=== PATIENT | female | born 1985 | race Caucasian/White ===

== ENCOUNTER → 2018-04-22 09:45 | Outpatient (CLI) | payer OTHER, SELFPAY ==
--- NOTE | 2018-04-22 09:45 | DT_ITS ---
This patient was seen during an EMR downtime April 19, 2018 - April 26, 2018. This patient may have a combination of paper and electronic documentation or all paper documentation. All documentation is viewable within the e-chart portion of [facility] for each patient visit.
[2018-05-04 14:06] LABS: HPV Reflexed? NOT INDICATED
== END ==
PROVIDERS: Visit Provider Obstetrics & Gynecology
DX: Z12.4 Encounter for screening for malignant neoplasm of cervix (principal)
CPT/HCPCS: 88175; G0145

== ENCOUNTER → 2018-04-22 10:05 | Outpatient (CLI) | payer OTHER, SELFPAY ==
--- NOTE | 2018-04-22 10:05 | DT_ITS ---
This patient was seen during an EMR downtime April 19, 2018 - April 26, 2018. This patient may have a combination of paper and electronic documentation or all paper documentation. All documentation is viewable within the e-chart portion of [facility] for each patient visit.
[2018-04-27 06:13] LABS: ALB/GLOB Ratio 0.8 RATIO (0.9-2.4); AST(SGOT) 17 U/L (15-37); Alanine Aminotransfer ALT/SGPT 28 U/L (13-56); Albumin, Serum 3.6 g/dL (3.2-5.0); Alkaline Phosphatase 85 U/L (45-117); Anion Gap 8 (5-15); BUN 10 mg/dL (7-18); BUN/Creat Ratio 16.4 RATIO (10-20); Chloride 102 mmol/L (98-107); Creatinine, Serum 0.61 mg/dL (0.55-1.02); EST Glomerular Filtration Rate 119 mL/min (>60); Est Glom Filt Rate - Afr Amer 144 mL/min (>60); Free T3 2.5 pg/mL (2.18-3.98); Globulin 4.8 g/dL (2.2-4.2); Glucose 81 mg/dL (74-106); Potassium 4.3 mmol/L (3.5-5.1); Protein, Total 8.4 g/dL (6.4-8.2); Sodium Level 139 mmol/L (136-145)
[2018-04-27 06:14] LABS: Ferritin 88 ng/mL (8-252); Iron 77 ug/dL (50-170); T4 Free Direct 1.02 ng/dL (0.76-1.46); Thyroid Stim Hormone (TSH) 1.34 uIU/mL (0.358-3.74)
[2018-04-27 06:23] LABS: Hematocrit 46.3 % (37-47); Hemoglobin 15.1 g/dl (12.0-15.0); Mean Corp Hgb Conc 32.6 g/gl (32-36); Mean Corpuscular Hgb 29.5 pg (27.0-32.0); Mean Corpuscular Volume 90.6 fL (81-99); Mean Platelet Vol. 9.8 fl (6.2-12.0); Platelet Count 412 K/mm3 (150-450); RBC Distribution Width CV 13.2 % (11.6-14.6); RBC Distribution Width SD 43.4 fl (35.1-43.9); Red Blood Count 5.11 M/mm3 (4.2-5.4); Scan Indicated on CBC? Y/N NO; White Blood Count 8.9 K/mm3 (4.4-11.0)
== END ==
PROVIDERS: Visit Provider Obstetrics & Gynecology
DX: N92.5 Other specified irregular menstruation (principal); Z13.228 Encounter for screening for other metabolic disorders
CPT/HCPCS: 80053; 82728; 83540; 84439; 84443; 84481; 85027

== ENCOUNTER 2018-09-16 11:34 | Outpatient (RCR) | payer OTHER, SELFPAY ==
--- NOTE | 2018-11-04 11:19 | MASS.DISCH ---
Massage Therapy Discharge Summary: Initial Evaluation: 09/16/2018 Diagnosis: Hip Pain No. of Visits: Date of last visit: 09/16/2018 This patient is being discharged from our care at the [facility]. Thank you, Ana Antonio LMT
== END 2018-09-16 19:00 | disposition home or self-care (01) ==
LOC: MASS 11:34
PROVIDERS: Family Provider Family Medicine; PCP Family Medicine; Visit Provider Family Medicine
DX: M25.559 Pain in unspecified hip (principal)
CPT/HCPCS: 97124

== ENCOUNTER → 2018-11-17 08:33 | Outpatient (CLI) | payer OTHER, SELFPAY ==
--- NOTE | 2018-11-17 12:38 | NEURO ---
NCS and/or EMG Patient Report Ordering Doctor: Shonna Webb DATE OF SERVICE: 11/17/18 Elena Bennett is a 33-year-old female who presents for electrodiagnostic testing of the upper limbs. She complains of numbness, tingling and pain in both hands for the past year. Electrodiagnostic findings: Right median motor nerve demonstrates normal distal latency, amplitude and conduction velocity. Left median motor nerve demonstrates prolonged distal latency with normal amplitude and conduction velocity. Left median motor amplitude is 50% of the right side. Normal ulnar motor response bilaterally, including conduction velocity across the elbow. Prolonged median sensory distal latencies noted bilaterally. Normal ulnar and radial sensory responses. Needle EMG testing shows no evidence of denervation in the muscles tested. Motor unit action potentials are of normal amplitude and duration. Electrodiagnostic impression: This is an abnormal study in the upper limbs. 1. Electrodiagnostic findings demonstrate bilateral median mononeuropathy. This consistent with a mild right carpal tunnel syndrome and a moderate left carpal tunnel syndrome. If there are any further questions, please do not hesitate to contact me.
== END ==
PROVIDERS: Family Provider Family Medicine; PCP Family Medicine; Referring Provider Family Medicine; Visit Provider Family Medicine
DX: G56.03 Carpal tunnel syndrome, bilateral upper limbs (principal)
CPT/HCPCS: 95886; 95913

== ENCOUNTER → 2019-04-08 09:58 | Outpatient (CLI) | payer OTHER, SELFPAY ==
[2019-04-08 13:50] LABS: HIV - WCH Non-Reactive (Nonreactive)
[2019-04-08 15:43] LABS: Chlamydia Trachomatis by PCR Negative (Negative); Probe Check PASS; Sample Adequacy Control PASS; Specimen Processing Control PASS
[2019-04-09 12:33] LABS: Hep C Antibodies <0.1 s/co ratio (0.0-0.9)
== END ==
PROVIDERS: Family Provider Family Medicine; PCP Family Medicine; Referring Provider Family Medicine; Visit Provider Family Medicine
DX: Z20.2 Contact with and (suspected) exposure to infections with a predominantly sexual mode of transmission (principal)
CPT/HCPCS: 36415; 86703; 86803; 87491

== ENCOUNTER 2019-10-04 10:00 | Outpatient (RCR) | payer OTHER, SELFPAY ==
--- NOTE | 2018-12-13 13:27 | MASS.EVAL ---
Massage Therapy Evaluation: Initial Evaluation Date: /Age: 04 1985, 33 Diagnosis: Myalgia Tendonitis Medications: Duloxetine Goals: Decerase muscle tension Promote relaxation Plan: To be seen 1 time per month or PRN for a total of ten visits
--- NOTE | 2019-11-11 15:06 | MASS.DISCH ---
Massage Therapy Discharge Summary: Discharge Date: 11/11/2019 Elena was seen for a massotherapy evaluation on 12/08/2018 with the diagnosis of shoulder and back pain. She was treated with seven sessions of massage therapy consisting of moderate to deep pressure soft tissue techniques, myofascial release and trigger point compression to her cervical, thoracic, lower back, upper extremities and hips. Elena responded well to the therapy by reporting decreased tension and pain throughout her head, neck, shoulders, lower back and hips. Her goals for therapy were met throughout the treatment sessions. At this time this patient is being discharged from our care at [facility] facility.
== END 2019-10-04 19:00 | disposition home or self-care (01) ==
LOC: MASS 10:00
PROVIDERS: Family Provider Family Medicine; PCP Family Medicine; Visit Provider Family Medicine
DX: M77.9 Enthesopathy, unspecified (principal); M79.10 Myalgia, unspecified site
CPT/HCPCS: 97124

== ENCOUNTER → 2019-10-17 13:48 | Outpatient (CLI) | payer OTHER, SELFPAY | PROVIDERS: Visit Provider Obstetrics & Gynecology | DX: Z12.4 Encounter for screening for malignant neoplasm of cervix (principal); Z11.3 Encounter for screening for infections with a predominantly sexual mode of transmission ==

== ENCOUNTER → 2019-12-16 15:55 | Outpatient (CLI) | payer OTHER, SELFPAY ==
[2019-12-16 17:43] LABS: hCG Titer Quant., Serum < 1 mIU/mL (1-3)
[2019-12-16 17:54] LABS: Progesterone Level 0.44 ng/mL (See Comment)
== END ==
PROVIDERS: Visit Provider Obstetrics & Gynecology
DX: Z30.014 Encounter for initial prescription of intrauterine contraceptive device (principal)
CPT/HCPCS: 36415; 84144; 84702

== ENCOUNTER → 2020-04-23 | Outpatient (CLI) | payer OTHER, SELFPAY ==
[2020-04-25 23:53] LABS: HPV HC, High Risk Positive (Negative)
[2020-04-25 23:54] LABS: HPV Reflexed? NOT INDICATED
== END | disposition home or self-care (01) ==
LOC: LABSPEC 10:18
PROVIDERS: Visit Provider Obstetrics & Gynecology
DX: R87.610 Atypical squamous cells of undetermined significance on cytologic smear of cervix (ASC-US) (principal); R87.810 Cervical high risk human papillomavirus (HPV) DNA test positive
CPT/HCPCS: 88175; G0145

== ENCOUNTER 2020-04-29 14:06 | Emergency (ER) | payer OTHER, SELFPAY ==
[2020-04-29 14:07] VITALS: BP 144/88; PULSE 88; RESP 16; TEMP 36.7; BMI 34.2
--- NOTE | 2020-04-29 14:40 | RAD_ITS ---
STUDY: X-RAY - RIGHT HAND, ATTENTION FIRST FINGER REASON FOR EXAM: Female, 35 years old. Large wooden splinter removed from thumb TECHNIQUE: 3 view(s) of the finger were obtained. COMPARISON: None. FINDINGS: Normal metacarpal head. Normal metacarpophalangeal joint. Normal proximal phalanx. Normal distal phalanx. Normal interphalangeal joint. No subcutaneous emphysema or radiopaque density within the soft tissue. RAD/Finger(s) Min 2 Views IMPRESSION: Normal x-ray examination of the finger. Electronically Signed: Danny Moy DO at 15:35 EDT Tel [phone], Service support ,
[2020-04-29] MEDS: Diphth,Pertuss(Acell),Tet Vac 0.5 ML Vial IM (14:43)
--- NOTE | 2020-04-29 15:05 | ED.DCSUM_ITS ---
History of Present Illness Chief Complaint: Foreign Body Informant: Patient Onset: Today Narrative: Patient has a piece of chicken coop plywood in her right thumb. Unknown last tetanus. Past Medical History - Allergies and Home Meds Allergies/Adverse Reactions: Allergies No Known Allergies Allergy (Verified 04/29/20 14:13) Smoking Status: Never smoker Review of Systems General: Denies: Chills, Fever, Sweats Eyes: Denies: Visual changes - bilaterally, Diplopia ENT: Denies: Rhinorrhea, Sore throat Cardiovascular: Denies: Chest pain, Palpitations Respiratory: Denies: Dyspnea, Cough, Dyspnea on exertion Gastrointestinal: Denies: Abdominal pain, Nausea, Vomiting, Diarrhea, Melena, Hematochezia Genitourinary: Denies: Dysuria, Hematuria, Frequency Musculoskeletal: Reports: Extremity Pain. Denies: Back pain Skin: Denies: Rash, Wounds Neurological: Denies: Headache, Weakness, Numbness Physical Exam Vital Signs/Narrative: Vital Signs Temp Pulse Resp BP 04/29/20 14:07 98.1 F 88 16 144/88 H Inital Vital Signs reviewed: Yes General: Well nourished, Well developed, No Acute Distress Head: Normocephalic, Atraumatic Eyes: Perrl, EOMI ENT: Moist mucous membranes, No rhinorrhea Neck: Supple, Nontender Cardiovascular: Regular rate, Regular rhythm, No murmurs Respiratory: No distress, CTA bilaterally, Chest nontender Abdomen: Soft, Nontender, Nondistended, Normal bowel sounds Back: Nontender, Normal Inspection Extremities: No edema, Tenderness - There is a wooden splinter in the fat pad of the right thumb. Skin: Normal color, No rash Neurological: Alert, Oriented x3, Cranial nerves II-XII grossly intact, Normal Strength, Normal Sensation Psychological: Normal affect, Normal Mood Diagnostic/Tx/Re-eval - Medical Decision Making Patient underwent a digital block. She still had some discomfort when we attempted to remove it so small amount of local lidocaine was instilled at the site of the splinter. A small 11 blade incision was made to help facilitate removal of the splinter. Splinter was removed the wound was probed I do not feel any more foreign bodies. Post extraction films do not show any radiopaque foreign bodies. Patient understands that given that this was plywood a small piece may remain. If she has problems with it I will refer her to surgery. Her tetanus was updated. ED Disposition - Plan for ED Patient: Disposition: Home or Assisted Living Diagnosis: Foreign body (FB) in soft tissue Instructions: ED Foreign Body Soft Tissue Removed Prescriptions: Cephalexin [Keflex] 500 mg PO Q6 #20 cap Transmission Status: Pending to [facility] Referrals: Davon Madison MD [STAFF PHYSICIAN] - As Needed
[2020-04-29] MEDS: Cephalexin 250 MG Capsule 1000 MG PO (15:47)
== END 2020-04-29 15:50 | disposition home or self-care (01) ==
LOC: ED 15:29
PROVIDERS: Emergency Provider Emergency Medicine; PCP Family Medicine
DX: S60.351A Superficial foreign body of right thumb, initial encounter (principal); X58.XXXA Exposure to other specified factors, initial encounter; Y93.89 Activity, other specified; Y92.9 Unspecified place or not applicable
CPT/HCPCS: 10120; 73140; 90715; 99283

== ENCOUNTER → 2020-06-07 | Outpatient (CLI) | payer OTHER, SELFPAY ==
--- NOTE | 2020-06-07 | CER_PTH ---
PATIENT: MITCH RODRIGUEZ LOC: [facility] U#:[id number] AGE/SX: 35/F ROOM: RE06/07/[address]: Dr. Khanh Talley MD : 1985 BED: DIS: 06/07/2020 SPEC #: [id number] RECD: 06/07/20 15:44 STATUS: LOLA MITCHELL #: [id number] JOSE ALFREDO: 06/07/20 00:[address]: Khanh Talley DEPT: SURGICAL PATHOLOGY RECD BY: Kevin Segal ENTERED: 06/08/20 07:34 SP TYPE: CERV OTHR DR: Dr. Shonna Webb MD Tissues: A - Uterine cervix, NOS B - Uterine cervix, NOS Procedures: Surgery Specimen Level IV HEADER OPERATION: Colposcopy PRE-OP DIAGNOSIS: R87.810 TISSUE SUBMITTED: A - Cervical biopsy 6 o'clock, B - ECC MICROSCOPIC DIAGNOSIS A. 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 Acute and chronic inflammation. See comment. B. ECC: Fragments of benign endocervical epithelium, benign endocervical mucosa, blood and mucous, negative for dysplasia. RYAN:cristian 06/10/20 COMMENT A. Immunohistochemistry ([id number]) for surrogate HPV marker (p16) supports the above diagnosis. Case has been reviewed in consultation with Dr. Garcia who concurs with the above diagnosis. IDC:AM MICROSCOPIC DESCRIPTION Slides are reviewed. GROSS DESCRIPTION A - Received in fixative is one container labeled with the patient's name and designated cervical biopsy 6 o'clock. The specimen consists of three irregular fragments of light knutson soft tissue that in aggregate measure 0.8 x 0.2 x 0.1 cm. The specimen is totally submitted in one cassette. B - Received in fixative is one container labeled with the patient's name and designated ECC. The specimen consists of multiple irregular fragments of hemorrhagic mucoid tissue that in aggregate measure 1.5 x 1 x 0.1 cm. The specimen is totally submitted in one cassette. / SJ:cristian 06/08/20 TC:5 CPT: 13318 x2
--- NOTE | 2020-06-07 | IMM_PTH ---
PATIENT: MITCH RODRIGUEZ LOC: [facility] U#:[id number] AGE/SX: 35/F ROOM: RE06/07/[address]: Dr. Khanh Talley MD : 1985 BED: DIS: 06/07/2020 SPEC #: [id number] RECD: 06/11/20 10:18 STATUS: LOLA REQ #: [id number] JOSE ALFREDO: 06/07/20 00:[address]: Khanh Talley DEPT: IMMUNOHISTOCHEMISTRY RECD BY: Terrie Chen ENTERED: 06/11/20 10:19 SP TYPE: IMMUNO OTHR DR: Dr. Shonna Webb MD Tissues: A - Uterine cervix, NOS Procedures: P16 (add) KI-67 (initial) PHYSICIAN & INSTITUTION [place] [id number] SPECIMEN INFORMATION: Tissue Source: A - Cervix at 6 o'clock, biopsy Clinical Info: R87.810 Specimen Number: [id number] CPT code: 83199, 21594 METHODOLOGY: Deparaffinized sections of prefer/formalin-fixed tissue or PAP/DQ stained slides are incubated with monoclonal/polyclonal antibodies/oligonucleotide probes. Localization is made via biotin free immunoperoxidase method. Appropriate controls are performed and reacted as expected. Results on target cell population are indicated in the following table: RESULTS: ANTIBODY / CLONE RESULT Block A P16 (E6H4) positive, focal and patchy Ki-67 (30-9) positive, low These tests were developed and their performance characteristics determined by [facility]. They may not have been cleared or approved by the U.S. Food and Drug Administration. The FDA has determined that such clearance or approval is not necessary. The above immunohistochemical/dualISH markers are ordered and reviewed by the Pathologist. INTERPRETATION: A. Cervix at 6 o'clock, biopsy: Mild squamous dysplasia. RYAN:cristian 06/12/20
== END | disposition home or self-care (01) ==
LOC: LABSPEC 15:56
PROVIDERS: PCP Family Medicine; Referring Provider Obstetrics & Gynecology; Visit Provider Obstetrics & Gynecology
DX: R87.810 Cervical high risk human papillomavirus (HPV) DNA test positive (principal)
CPT/HCPCS: 88305; 88341; 88342

== ENCOUNTER → 2020-08-06 15:11 | Outpatient (CLI) | payer OTHER, SELFPAY ==
[2020-08-06 18:02] LABS: Absolute Lymphocyte Count 4.31 X10^3/uL (0.83-4.51); Absolute Neutrophil Count 3.8 X10^3/uL (2.0-7.7); Basophil# 0.09 X10^3/uL; Eosinophil# 0.21 X10^3/uL; Eosinophils% 2.2 % (0-5); Hematocrit 44.3 % (37-47); Hemoglobin 14.7 g/dL (12.0-15.0); Lymphocyte # 4.31 X10^3/ul (4.0); Lymphocyte % 45.6 % (19-41); Mean Corp Hgb Conc 33.2 g/dL (32-36); Mean Corpuscular Hgb 29.6 pg (27.0-32.0); Mean Corpuscular Volume 89.1 fL (81-99); Mean Platelet Vol. 9.7 fl (6.2-12.0); Monocyte# 0.99 X10^3/uL; Monocyte% 10.5 % (0-10); NRBC Flagged by Analyzer 0 % (0-5); Neutrophil # 3.83 X10^3/uL (2.7-7.7); Neutrophil % 40.4 % (47-70); POSITIVE MORPHOLOGY YES; Platelet Count 372 K/mm3 (150-450); RBC Distribution Width CV 13.1 % (11.6-14.6); RBC Distribution Width SD 42.8 fl (35.1-43.9); RET-HE 32.7 pg (30-35); Red Blood Count 4.97 M/mm3 (4.2-5.4); Reticulocyte Count 1.99 % (0.5-1.5); White Blood Count 9.5 K/mm3 (4.4-11.0)
[2020-08-06 18:05] LABS: Differential Indicated SCAN CRITERIA MET
[2020-08-06 18:24] LABS: Differential Comment SCANNED
[2020-08-06 18:41] LABS: Ferritin 96 ng/mL (8-252); Iron 88 ug/dL (50-170)
== END ==
PROVIDERS: PCP Family Medicine; Referring Provider Family Medicine; Visit Provider Family Medicine
DX: D75.1 Secondary polycythemia (principal)
CPT/HCPCS: 36415; 82728; 83540; 85025; 85045

== ENCOUNTER 2020-10-16 10:00 | Outpatient (RCR) | payer OTHER, SELFPAY ==
--- NOTE | 2019-11-28 10:19 | MASS.EVAL_ITS ---
Massage Therapy Evaluation: Initial Evaluation Date: 11/28/2019 SUBJECTIVE: Elena is a 34 year old female who was referred to the [facility] for a massotherapy evaluation by Dr. Webb with the diagnosis of low back pain. She presents today with the symptoms of pain, stiffness and tension in the neck, mid back and low back. Elena reports having a past medical history of pain and tension in her neck, shoulders and low back related to her posture at work and stress. She reports having minimal improvement with exercise and stretching. OBJECTIVE: Upon observation Elena has some posture issues with her head and shoulders forward from the neutral position in sitting and standing. After examination and palpation, I found Elena to have high muscle tension with tenderness and myofascial restrictions in her sub occipitals, levator scapulae, trapezius, rhomboids, scalenes, and thoracic paraspinals. Her QL?s, lumbar paraspinals, piriformis, glute medius and minimus all were very tight with fascial restrictions, tender points and trigger points. The first treatment consisted of a one hour massage to her upper body with myofascial release, muscle stripping, trigger point compression techniques, and cervical manual traction. ASSESSMENT: I feel that Elena is a good candidate for massotherapy at this time. She had a favorable response to the first treatment with reduction in her muscle aches, pain and tension. She also had improvement in her cervical flexibility and low back flexibility. PLAN: The plan of care was reviewed with the patient. The patient is to be seen on an as needed basis for a total of ten sessions with the recommendation of once every month for a one hour treatment.
--- NOTE | 2020-11-03 09:37 | DS.PCM_ITS ---
Massage Therapy Discharge Summary: Discharge Date: 11/03/2020 Elena was seen for a massotherapy evaluation on 11/28/2019 with the diagnosis of low back pain. She was treated with ten sessions of massage therapy consisting of deep pressure soft tissue techniques, myofascial release and trigger point compression to her cervical, thoracic, lower back, lower extremities and hips. Elena responded well to the therapy by reporting decreased tension and pain throughout her neck, shoulders, lower back and hips. Her goals for therapy were met throughout the treatment sessions. At this time this patient is being discharged from our care at [facility] facility.
== END 2020-10-16 19:00 | disposition home or self-care (01) ==
LOC: MASS 10:00
PROVIDERS: Family Provider Family Medicine; PCP Family Medicine; Referring Provider Family Medicine; Visit Provider Family Medicine
DX: M54.5 Low back pain (principal)
CPT/HCPCS: 97124

== ENCOUNTER → 2021-03-28 13:32 | Outpatient (CLI) | payer OTHER, SELFPAY ==
[2021-03-12 11:17] VITALS: BMI 35.3
[2021-03-28 16:09] LABS: Syphilis Antibodies Reactive
== END ==
PROVIDERS: PCP Family Medicine; Referring Provider Family Medicine; Visit Provider Family Medicine
DX: Z20.2 Contact with and (suspected) exposure to infections with a predominantly sexual mode of transmission (principal)
CPT/HCPCS: 36415; 86780

== ENCOUNTER → 2021-05-27 09:40 | Outpatient (CLI) | payer OTHER, SELFPAY ==
[2021-04-25 12:56] VITALS: BMI 35.0
[2021-05-27 16:32] LABS: Hepatitis C Antibody Non-Reactive (Nonreactive)
== END ==
PROVIDERS: PCP Family Medicine; Referring Provider Family Medicine; Visit Provider Family Medicine
DX: R94.5 Abnormal results of liver function studies (principal)
CPT/HCPCS: 36415; 86803

== ENCOUNTER → 2021-07-03 | Outpatient (CLI) | payer OTHER, SELFPAY ==
[2021-07-08 16:43] LABS: HPV APTIMA, High Risk Negative (Negative)
[2021-07-08 16:44] LABS: HPV Reflexed? YES, CHARGE PATIENT
== END | disposition home or self-care (01) ==
LOC: LABSPEC 10:01
PROVIDERS: PCP Family Medicine; Visit Provider Obstetrics & Gynecology
DX: Z12.4 Encounter for screening for malignant neoplasm of cervix (principal)
CPT/HCPCS: 87624; 88175; G0145

== ENCOUNTER → 2021-09-17 08:26 | Outpatient (CLI) | payer OTHER, SELFPAY ==
--- NOTE | 2021-09-18 14:25 | PFT ---
INTRODUCTION: The patient is a 36-year-old female that presents for pulmonary function studies secondary to a diagnosis of shortness of breath. Respiratory therapy reports good patient effort. Bronchodilators were used during testing. INTERPRETATION: Forced expiration spirometry demonstrates no evidence of a large airways obstructive ventilatory defect. There was a partial, albeit, technically nonsignificant response to aerosolized bronchodilators. Spirograms are of good quality and plateau normally. Body plethysmography was performed and reveals lung volumes to be within normal limits. Diffusing capacity by single breath CO is also within normal limits. IMPRESSION: Grossly normal pulmonary function studies. There was a partial nonsignificant response to aerosolized bronchodilators.
== END ==
PROVIDERS: PCP Family Medicine; Referring Provider Family Medicine; Visit Provider Family Medicine
DX: R06.02 Shortness of breath (principal)
CPT/HCPCS: 94060; 94726; 94729

== ENCOUNTER 2021-10-21 12:15 | Outpatient (RCR) | payer OTHER, SELFPAY ==
[2020-08-23 10:58] VITALS: BMI 33.8
--- NOTE | 2020-12-10 15:09 | MASS.EVAL_ITS ---
Massage Therapy Evaluation: Initial Evaluation Date: 12/10/2020 SUBJECTIVE: Elena is a 35 year old female who was referred to the [facility] facility for a massotherapy evaluation by Dr. Webb with the diagnosis of myalgias. She presents today with the symptoms of pain, stiffness and tension in the neck, mid back, low back, hips, and legs. Elena reports having a past medical history of tension and pain in her neck, back, shoulders, and headaches. She reports having minimal improvement with exercise and stretching over the last f ew months. OBJECTIVE: Upon observation Elena has some posture issues with her head and shoulders forward from the neutral position in sitting and standing. After examination and palpation, I found Elena to have high muscle tension with tenderness and myofascial restrictions in her sub occipitals, levator scapulae, trapezius, rhomboids, scalenes, and thoracic paraspinals. Her QL?s, lumbar paraspinals, piriformis, glute medius and minimus all were very tight with fascial restrictions, tender points and trigger points. The first treatment consisted of a one hour massage to her full body with myofascial release, muscle stripping, trigger point compression techniques, and cervical manual traction. ASSESSMENT: I feel that Elena is a good candidate for massotherapy at this time. She had a favorable response to the first treatment with reduction in her muscle aches, pain and tension. She also had improvement in her cervical flexibility and low back flexibility. PLAN: The plan of care was reviewed with the patient. The patient is to be seen on an as needed basis for a total of ten sessions with the recommendation of once every month for a one hour treatment.
== END 2021-10-21 19:00 | disposition home or self-care (01) ==
LOC: MASS 12:15
PROVIDERS: PCP Family Medicine; Referring Provider Family Medicine; Visit Provider Family Medicine
DX: M79.10 Myalgia, unspecified site (principal)
CPT/HCPCS: 97124

== ENCOUNTER 2022-01-02 09:15 | Outpatient (CLI) | payer OTHER, SELFPAY ==
[2022-01-02 11:15] LABS: HIV - WCH Non-Reactive (Nonreactive); Hepatitis B Surface Antibody Reactive; Hepatitis B Surface Antigen Non-Reactive (Nonreactive); Syphilis Antibodies Reactive
[2022-01-02 11:52] LABS: Chlamydia Trachomatis by PCR Negative (Negative); Neisserai gonorrhoeae by PCR Negative (Negative); Probe Check PASS; Sample Adequacy Control PASS; Specimen Processing Control PASS
[2022-01-03 08:13] LABS: Hepatitis B Core AB IgM Negative (Negative)
== END 2022-01-02 23:59 | disposition home or self-care (01) ==
PROVIDERS: PCP Family Medicine; Referring Provider Family Medicine; Visit Provider Family Medicine
DX: Z20.2 Contact with and (suspected) exposure to infections with a predominantly sexual mode of transmission (principal)
CPT/HCPCS: 36415; 86703; 86705; 86706; 86780; 87340; 87491; 87591

== ENCOUNTER → 2022-09-01 | Outpatient (CLI) | payer OTHER, SELFPAY ==
[2022-09-08 16:53] LABS: HPV APTIMA, High Risk Positive (Negative)
== END | disposition home or self-care (01) ==
LOC: LABSPEC 10:35
PROVIDERS: PCP Family Medicine; Visit Provider Student in an Organized Health Care Education/Training Program
DX: Z12.4 Encounter for screening for malignant neoplasm of cervix (principal)
CPT/HCPCS: 87624; 88175; G0145

== ENCOUNTER → 2022-10-06 | Outpatient (CLI) | payer OTHER, SELFPAY ==
--- NOTE | 2022-10-06 | IMM_PTH ---
PATIENT: MITCH RODRIGUEZ [facility] U#:[id number] AGE/SX: 37/F ROOM: RE10/06/[address]: Dr. Radha Jaimes DO : 1985 BED: DIS: 10/06/2022 SPEC #: [id number] RECD: 10/08/22 12:20 STATUS: LOLA REQ #: [id number] JOSE ALFREDO: 10/06/22 00:[address]: Radha Jaimes DEPT: IMMUNOHISTOCHEMISTRY RECD BY: Terrie Chen ENTERED: 10/08/22 12:22 SP TYPE: IMMUNO OTHR DR: Dr. Nic Cardona MD Tissues: B - Uterine cervix, NOS Procedures: p16 (initial) KI-67 (add) PHYSICIAN & INSTITUTION [place] [address] SPECIMEN INFORMATION: Tissue Source: B ? Cervix at 11 and 5 o?clock Clinical Info: LSIL & HPV Specimen Number: [id number] CPT code: 41744, 05689 METHODOLOGY: Deparaffinized sections of prefer/formalin-fixed tissue or PAP/DQ stained slides are incubated with monoclonal/polyclonal antibodies/oligonucleotide probes. Localization is made via biotin free immunoperoxidase method. Appropriate controls are performed and reacted as expected. Results on target cell population are indicated in the following table: RESULTS: ANTIBODY / CLONE RESULT Block B P16 (E6H4) positive, focal and patchy Ki-67 (30-9) positive, low These tests were developed and their performance characteristics determined by [facility]. They may not have been cleared or approved by the U.S. Food and Drug Administration. The FDA has determined that such clearance or approval is not necessary. The above immunohistochemical/dualISH markers are ordered and reviewed by the Pathologist. INTERPRETATION: Cervix, 11 and 5 o?clock, biopsy: Focal changes consistent with HPV cytopathic effects. SJ:cristian 10/13/2022
--- NOTE | 2022-10-06 14:15 | CER_PTH ---
PATIENT: MITCH RODRIGUEZ LOC: [facility]#:[id number] AGE/SX: 37/F ROOM: RE10/06/[address]: Dr. Radha Jaimes DO : 1985 BED: DIS: 10/06/2022 SPEC #: [id number] RECD: 10/06/22 15:49 STATUS: LOLA REQ #: [id number] JOSE ALFREDO: 10/06/22 14:[address]: Radha Jaimes DEPT: SURGICAL PATHOLOGY RECD BY: Tia Khan ENTERED: 10/07/22 09:32 SP TYPE: CERV OTHR DR: Dr. Nic Cardona MD Tissues: A - Endocervical B - Uterine cervix, NOS Procedures: Surgery Specimen Level IV HEADER OPERATION: Colposcopy PRE-OP DIAGNOSIS: LSIL & HPV TISSUE SUBMITTED: A ? Endocervical curettings, B ? Cervix 11 and 5 o?clock MICROSCOPIC DIAGNOSIS A. Endocervical curettings: Scant fragment of benign ecto- and endocervical epithelium, negative for dysplasia. B. Cervix, 11 and 5 o?clock, biopsy: Focal changes consistent with HPV cytopathic effects. Acute and chronic inflammation. See comment. SJ:cristian 10/08/2022 COMMENT B. Immunohistochemistry ([id number]) for surrogate HPV marker (p16) supports the above diagnosis. Please make reference to previous specimen ([id number]) cervix, 6 o?clock, biopsy with diagnosis of ?mild squamous dysplasia with HPV changes.? MICROSCOPIC DESCRIPTION Slides are reviewed. GROSS DESCRIPTION A - Received in fixative is one container labeled with the patient's name and designated ECC. The specimen consists of a scant amount of soft tissue. The specimen is totally submitted for cell block preparation. B - Received in fixative is one container labeled with the patient's name and designated cervix 11 and 5 o'clock. The specimen consists of two irregular fragments of light knutson soft tissue that in aggregate measure 0.7 x 0.5 x 0.1 cm. The specimen is totally submitted in one cassette. / RYAN:cristian 10/07/2022 TC: CPT: 98331 x2
[2022-10-10 07:07] LABS: Chlamydia By Nucleic Acid AMP Negative (Negative)
[2022-10-10 08:54] LABS: Gonococcus By Nucleic Acid AMP Negative (Negative)
== END | disposition home or self-care (01) ==
LOC: LABSPEC 15:13
PROVIDERS: PCP Family Medicine; Visit Provider Student in an Organized Health Care Education/Training Program
DX: Z11.3 Encounter for screening for infections with a predominantly sexual mode of transmission (principal)
CPT/HCPCS: 87491; 87591; 88305; 88341; 88342

== ENCOUNTER 2023-04-16 17:00 | Outpatient (RCR) | payer OTHER, SELFPAY ==
--- NOTE | 2023-03-30 12:28 | HP.PTEVAL ---
Patient's Visit Information MITCH RODRIGUEZ is a 38 year old F referred to Physical Therapy by Dr. Tutu Cardona MD with a diagnosis of metatarsalgia. Date of Evaluation: 03/30/23 Physical Therapist: Klever Childs, STERLINGT, OCS, CSCS - Visit Plan Duration: one more visit to vend or Plan: Pt shown gastroc stretch and molded for orthoitcs today. will call when they come in to educate and cut to fit shoe. - Subjective I have foot pain for a couple months insidious onset, maybe with new hiking shoes. She wore then enough that they hurt all the time. Slightly improved now. 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 Better with sitting but not gone. Hurts on off days, enjoys hiking and kayaking. Has not been able to hike, but can still work outside. Diagnosed with metatarsalgia. Numby R last two digits. Walking is main ex. sleep is OK. - Pain ball of both feet Pain Intensity (Out of 10): 0 Pain Intensity Range: 0, 7 - Objective Walks without antalgia today I, trasnfers I. Posture of foot is pes cavus B, hindfoot neutral. Tender to palpation in met heads slightly B. gastroc max tight B at -2 length into DF. Stretch shown today. Otherwise aROM ankles and knees WFL and strength at ankles 4+/5. shoe size 10 , pes cavus , met pad, semi flexible orthotic ordered with mold. - Goals Goal 1:: I in use and fit of orthotics Goal Time Frame: 2-4 Weeks - Rehabilitation Potential Physical Therapy Diagnosis: metatarsalgia, pes cavus contributing. Rehabilitation Potential: Fair - Anticipated Interventions Patient/Client Instruction: Educate patient on: Condition For the Purpose of:: To decrease pain, To improve ability of physical actions for home/community/work/leisure Orthotics: Shoe insert For the Purpose of:: To decrease pain Thank you for the opportunity to evaluate your patient. For Medicare and Medicare HMO plans, please review the plan of care and approve it. It will need to be FAXED BACK to us at [phone] for Medicare purposes. For Medicare only, by signing this I certify the plan of care. Please let me know if there are questions or concerns regarding this plan of care. Physician Signature: Date:
--- NOTE | 2023-04-16 17:12 | HP.PTDCSUM ---
It has been my pleasure to treat MITCH RODRIGUEZ referred by Dr. Tutu Cardona MD, with the diagnosis of metatarsalgia for a total of 2 visit(s). Discharge Date: 04/16/23 Please see the following information for a summary of their discharge status. Subjective: Has bought otc arch supports and they help already. feeling better, excited to get these new ones. ball of both feet Pain Intensity (Out of 10): 0 % Improvement: 100 Objective/Function: Good fit in shoe and feels solid to patient. Goal 1:: I in use and fit of orthotics Goal Progress: Goal Met Plan: d/c, pt to call if concerns with orthotic or needs modified. Discharge Comments: Pt to utilize orthotics and let doctor know if pain persists. If there are questions or concerns regarding this patient's physical therapy, please feel free to call me at [phone]. Thank you for the referral of this patient. Sincerely, Klever Childs, DPT, OCS, CSCS
== END 2023-04-16 19:00 | disposition home or self-care (01) ==
LOC: PT 17:00
PROVIDERS: PCP Family Medicine; Referring Provider Family Medicine; Visit Provider Family Medicine
DX: M77.40 Metatarsalgia, unspecified foot (principal)
CPT/HCPCS: 97161; 97760; 97763

== ENCOUNTER → 2023-07-02 | Outpatient (CLI) | payer OTHER, SELFPAY ==
[2023-07-06 00:06] LABS: Cashew <0.10 kU/L (Class 0); Cat Hair / Dander,Stand <0.10 kU/L (Class 0); Clam <0.10 kU/L (Class 0); Codfish <0.10 kU/L (Class 0); Corn <0.10 kU/L (Class 0); Egg, White <0.10 kU/L (Class 0); Milk (Cow) <0.10 kU/L (Class 0); Oat <0.10 kU/L (Class 0); Peanut <0.10 kU/L (Class 0); SCALLOP <0.10 kU/L (Class 0); SESAME SEED <0.10 kU/L (Class 0); Shrimp <0.10 kU/L (Class 0); Soybean <0.10 kU/L (Class 0); Walnut, (Food) <0.10 kU/L (Class 0); Wheat <0.10 kU/L (Class 0)
== END | disposition home or self-care (01) ==
PROVIDERS: PCP Family Medicine; Referring Provider Otolaryngology; Visit Provider Otolaryngology
DX: T78.40XA Allergy, unspecified, initial encounter (principal)
CPT/HCPCS: 36415; 86003

== ENCOUNTER → 2023-08-27 | Outpatient (CLI) | payer OTHER, SELFPAY ==
--- NOTE | 2023-08-27 07:02 | BI_ITS ---
MAMMOGRAPHY - BILATERAL SCREENING REASON FOR EXAM: Female, 38 years old. Routine annual screening examination. PERTINENT HISTORY: Grandmother with breast cancer. Aunt with breast cancer. TECHNIQUE: Digital bilateral breast myrna (3D mammographic acquisition) in the CC and MLO projections. 2-D mediolateral oblique (MLO) and craniocaudad (CC) views of both breasts were obtained. CAD: Full Field Digital Mammography with Computer Added Detection was performed. COMPARISON: Comparison is made with prior outside examination dated May 03, 2014. FINDINGS: Breast Composition: There are scattered areas of fibroglandular density. There are no dominant masses or suspicious calcifications. Stable small benign-appearing bilateral axillary lymph nodes. No other significant abnormalities are identified. There has been no significant change since the prior study. BI/SCRN MAMM (CAD)W/MYRNA BILAT IMPRESSION: Stable bilateral screening mammogram. Yearly follow-up mammogram recommended. (A) ASSESSMENT CATEGORY: BIRADS Category 2: Benign. A letter regarding these results will be sent to the patient by the facility within 30 days. Approximately 10% of breast cancers are not detected by mammography. A normal mammogram should not delay biopsy of a clinically suspicious abnormality. [id number] Electronically Signed: Maurizio Bryant MD at 11:19 EDT ,
== END | disposition home or self-care (01) ==
LOC: OPBI 07:02
PROVIDERS: PCP Family Medicine; Referring Provider Family Medicine; Visit Provider Family Medicine
DX: Z12.31 Encounter for screening mammogram for malignant neoplasm of breast (principal)
CPT/HCPCS: 77063; 77067

== ENCOUNTER → 2024-03-03 | Outpatient (CLI) | payer OTHER, SELFPAY ==
[2024-03-05 08:13] LABS: Chlamydia By Nucleic Acid AMP Negative (Negative); Gonococcus By Nucleic Acid AMP Negative (Negative)
[2024-03-07 16:09] LABS: HPV APTIMA, High Risk Negative (Negative)
== END | disposition home or self-care (01) ==
PROVIDERS: PCP Family Medicine; Visit Provider Advanced Practice Midwife
DX: Z12.4 Encounter for screening for malignant neoplasm of cervix (principal); Z11.3 Encounter for screening for infections with a predominantly sexual mode of transmission
CPT/HCPCS: 87491; 87591; 87624; 88175; G0145

== ENCOUNTER 2024-11-17 15:00 | Outpatient (RCR) | payer OTHER, SELFPAY ==
--- NOTE | 2024-08-25 13:26 | HP.PTEVAL_ITS ---
Patient's Visit Information Visit Information Visit Information: MITCH RODRIGUEZ is a 39 year old F referred to Physical Therapy by Dr. Nic Cardona MD with a diagnosis of B plantar fascitis. Date of Evaluation: 08/25/24 Physical Therapist: Brandon Zavala DPT Visit Plan Frequency: 1x/Week Duration: 2 Weeks Plan: Pt. was fit for custom orthotics for BLEs.. pt. to come back once orthotic s are here for final fitting. Subjective Subjective: Pt. is here today for her initial evaluation with diagnosis of B plantar fascitis with need for orthotics. Pt. reports having issues for a few years, but orthotics really help her symptoms. Her previous ones have warn out. Pt. reports increased issues with standing and walking. Pt. works as a nurse. Pt. reports being HEP compliant with stretching and strengthening from previous PT. Pt. denies N/T in either LE. Pt. reports when she is off her feet she does well. Pt. is hopeful to be fit for orthotics in order to decreased her B foot pain allowing for increased tolerance to all recreational and work activities. Pain B plantar fascia: Pain Intensity (Out of 10): 1 Pain Intensity Range: 0 and 4 Objective Objective: POSTURE: Pt. good knee and positioning in stance. Increased pronation during SLS bilaterally, no major navicular drop, but does pronate. PALPATION: Pt. has increased tenderness along medial longitudinal arch and plant ar fascia. NEURO: Normal throughout. Pt. is able to rise on heels and toes. ROM: Pt. has good ROM throughout B ankles and feet. MMT: 5/5 strength throughout BLEs without issues. GAIT: With shoes on: good hip and knee positioning, good forefoot rocker moment. Pt. reports mild soreness in B feet with walking. Without Shoes: Pt. has increased B foot pronation during stance phase of gait. Pt. reports increased pain barefoot compared to with shoes on. STAIRS: Normal without issues. Uses 1 HR for stability. Goals Goal 1:: STG: Pt. to be fit for custom orthotics. Goal Time Frame: 1 Week Goal 2:: LTG: pt. to tolerated progressive wearing program of orthotics. Goal Time Frame: 4-6 Weeks Rehabilitation Potential Physical Therapy Diagnosis: pt. has signs and symptoms consistent with B plantar fasciitis. Pt. would benefit from PT to be fitted for orthotics to increase tolerance with all work and recreational activities. She does have increased pronation during stance phase of gait. Rehabilitation Potential: Excellent Anticipated Interventions Patient/Client Instruction: Educate patient on: Condition, Plan of Care, Risk Factors and Benefits of Fitness Program For the Purpose of:: To foster healthy habits, To improve decision making, To facilitate caregiver knowledge, To improve self management, To prevent re-injury and To improve ability to perform tasks related to life management Orthotics: Shoe insert For the Purpose of:: To decrease pain, To increase ROM, To improve nutrient delivery to tissue, To increase oxygenation perfusion, To improve muscle performance and motor function, To improve ability to perform ADL's, To improve gait and locomotor functions and To decrease soft tissue restriction Text: Thank you for the opportunity to evaluate your patient. For Medicare and Medicare HMO plans, please review the plan of care and approve it. It will need to be FAXED BACK to us at [phone] for Medicare purposes. For Medicare only, by signing this I certify the plan of care. Please let me know if there are questions or concerns regarding this plan of care. Physician Signature: Date:
== END 2024-11-17 19:00 | disposition home or self-care (01) ==
LOC: PT 15:00
PROVIDERS: PCP Family Medicine; Visit Provider Family Medicine
DX: M72.2 Plantar fascial fibromatosis (principal)
CPT/HCPCS: 97161; 97760

== ENCOUNTER → 2024-11-25 | Outpatient (CLI) | payer OTHER, SELFPAY | END | disposition home or self-care (01) | LOC: SL 19:54 | PROVIDERS: PCP Family Medicine; Referring Provider Family Medicine; Visit Provider Family Medicine | DX: G47.8 Other sleep disorders (principal) | CPT/HCPCS: 95810 ==

== ENCOUNTER → 2025-02-13 | Outpatient (CLI) | payer OTHER, SELFPAY ==
--- NOTE | 2025-02-13 07:49 | BI_ITS ---
EXAM: SCRN MAMM (CAD)W/MYRNA BILAT DATE: 02/13/2025 CLINICAL HISTORY: F, Age 39 y/o , SCREENING FOR BREAST CANCER BREAST CANCER RISK ASSESSMENT: Has not been calculated. TECHNIQUE: Bilateral screening digital breast tomosynthesis with 2D and 3D images. Computer aided detection. COMPARISON: Prior exam(s) dated 08/27/2023. FINDINGS: TISSUE DENSITY: The breast tissue is composed of scattered area of fibroglandular density. Bilateral Breast Mammographic Findings: There is a 6 mm density in the superior far posterior aspect of the right breast. Further workup is indicated. Benign round calcifications are seen in the left breast. No suspicious masses, suspicious cluster of microcalcifications, architectural distortion or secondary sign of malignancy is identified in the left breast. BI/SCRN MAMM (CAD)W/MYRNA BILAT IMPRESSION: Right Breast: BIRADS 0 Incomplete: Need additional imaging evaluation and/or pr ior mammograms for comparison.. Left Breast: BIRADS 2 BENIGN FINDING. OVERALL FINAL ASSESSMENT: BIRADS 0 Incomplete: Need additional imaging evaluati on and/or prior mammograms for comparison. RECOMMENDATION: Incomplete: Need additional imaging evaluation and/or prior mammograms for comp arison. There is a 6 mm density in the superior, far posterior aspect of the right breast. Further workup is indicated. Patient should return for an LM view of the right breast as well as spot compression MLO view of the right breast density. An ultrasoun d may also be needed. A letter with findings and recommendations will be mailed to the patient. Reading Location: [id number]
== END | disposition home or self-care (01) ==
LOC: OPBI 07:48
PROVIDERS: PCP Family Medicine; Referring Provider Family Medicine; Visit Provider Family Medicine
DX: Z12.31 Encounter for screening mammogram for malignant neoplasm of breast (principal)
CPT/HCPCS: 77063; 77067

== ENCOUNTER → 2025-02-20 | Outpatient (CLI) | payer OTHER, SELFPAY ==
--- NOTE | 2025-02-20 14:24 | US_ITS ---
PROCEDURE: BREAST LIMITED UNILATERAL 02/20/2025 REASON FOR EXAM: 6MM DENSITY SUPERIOR FAR POSTERIOR ASPECT OF RIGHT BREAST Inconclusive mammogram. Evaluate masslike density. TECHNIQUE: Targeted left breast ultrasound. COMPARISON: Mammogram studies available dated 02/20/2025, 02/13/2025 and 08/27/2023 FINDINGS: Left breast ultrasound was targeted to the upper-outer quadrant of the right breast.. The breast tissue appears sonographically normal. No cyst, solid mass, or suspicious shadowing. There is no ultrasound abnormality seen on the images submitted for review to correlate to the masslike density seen on the mammogram. The masslike density therefore presumably is solid. There are no suspicious masses seen to suggest malignancy however, a short-term six-month follow-up mammogram is recommended to document stability. US/Breast Limited Unilateral IMPRESSION: Impression: The masslike density seen on the mammogram was not seen on the ultr asound images submitted for review. Short-term six-month follow-up mammogram is recommended to document stability. Birads: BI-RADS 3: PROBABLY BENIGN. Reading Location: [id number]
--- NOTE | 2025-02-20 14:24 | BI_ITS ---
PROCEDURE: DIAG MAMM W/CAD, UNILAT REASON FOR EXAM: F, Age 39 y/o , 6MM DENSITY SUPERIOR FAR POSTERIOR ASPECT OF RIGHT BREAST Inconclusive mammogram. Evaluate. COMPARISON: Prior exam(s) dated 02/13/2025 and 08/27/2023 TECHNIQUE: Left diagnostic digital breast tomosynthesis with 2D and 3D images. Computer aided detection. FINDINGS: TISSUE DENSITY: There are scattered areas of fibroglandular density. There is a subtle 6 mm masslike density in the superior outer, far posterior aspect of the right breast which does persist on today's study. Further workup with ultrasound will be performed for further evaluation. BI/DIAG MAMM W/CAD, UNILAT IMPRESSION: The masslike density in the right breast will be further worked up with ultraso und. Please see that report. BI-RADS 0: INCOMPLETE - NEED ADDITIONAL IMAGING EVALUATION. Reading Location: [id number]
== END | disposition home or self-care (01) ==
LOC: OPBI 14:22
PROVIDERS: PCP Family Medicine; Referring Provider Family Medicine; Visit Provider Family Medicine
DX: R92.30 Dense breasts, unspecified (principal)
CPT/HCPCS: 76642; 77065

== ENCOUNTER → 2025-05-05 | Outpatient (CLI) | payer OTHER, SELFPAY ==
--- NOTE | 2025-05-05 11:12 | RAD_ITS ---
PROCEDURE: HAND MIN 3 VIEWS 05/05/2025 REASON FOR EXAM: L 1ST MCP PAIN TECHNIQUE: HAND MIN 3 VIEWS COMPARISON: None. FINDINGS: Mild degenerative joint disease of the first carpometacarpal joint. Mild degenerative joint disease of the 1st metacarpophalangeal joint. Unremarkable remaining joints. No fracture or dislocation is seen. RAD/Hand Min 3 Views IMPRESSION: Mild degenerative joint disease of the 1st carpometacarpal joint. Mild degenerative joint disease of the 1st metacarpophalangeal joint. No radiographic evidence of an acute bone abnormality. Reading Location: [id number]
== END | disposition home or self-care (01) ==
LOC: MTRAD 11:11
PROVIDERS: PCP Family Medicine; Referring Provider Family Medicine; Visit Provider Family Medicine
DX: M79.642 Pain in left hand (principal)
CPT/HCPCS: 73130

== ENCOUNTER → 2025-05-10 | Outpatient (CLI) | payer OTHER, SELFPAY | END | disposition home or self-care (01) | LOC: MFPLAB 08:18 | PROVIDERS: PCP Family Medicine; Referring Provider Family Medicine; Visit Provider Family Medicine | DX: R63.5 Abnormal weight gain (principal) | CPT/HCPCS: 36415; 82533; 84443 ==

== ENCOUNTER → 2025-08-22 | Outpatient (CLI) | payer OTHER, SELFPAY ==
--- NOTE | 2025-08-22 08:55 | US_ITS ---
PROCEDURE: BREAST LIMITED UNILATERAL 08/22/2025 REASON FOR EXAM: F, Age 40 y/o , 6 MONTH FOLLOW UP COMPARISON: Prior mammogram done earlier in the day as well as prior sonogram dated February 20, 2025.. TECHNIQUE: Procedure Code: [id number] Modality: US Procedure: BREAST LIMITED UNILATERAL. The lateral aspect of the right breast was examined with ultrasound. FINDINGS: No sonographic abnormality is seen. US/Breast Limited Unilateral IMPRESSION: No sonographic abnormality is seen. BI-RADS 1: NEGATIVE RECOMMENDATION: Routine annual follow-up in 1 Year Reading Location: [id number]
--- NOTE | 2025-08-22 09:00 | BI_ITS ---
EXAM: DIAG MAMM W/CAD, UNILAT 08/22/2025 CLINICAL HISTORY: F, Age 40 y/o , 6 MONTH F/U RIGHT BREAST MASS TECHNIQUE: Procedure Code: [id number] Modality: MG Procedure: DIAG MAMM W/CAD, UNILAT. COMPARISON: Prior exam(s) dated February 20, 2025.. FINDINGS: TISSUE DENSITY: There are scattered areas of fibroglandular density. Bilateral Breast Mammographic Findings: No significant masses, calcifications or other abnormalities are identified. Questionable 6 mm benign intramammary lymph node in the deep upper lateral aspect of the right breast. Sonographic correlation recommended. BI/DIAG MAMM W/CAD, UNILAT IMPRESSION: Questionable 6 mm benign intramammary lymph node in the deep upper lateral aspe ct of the right breast. Sonographic correlation recommended. OVERALL FINAL ASSESSMENT BI-RADS 0: INCOMPLETE - NEED ADDITIONAL IMAGING EVALUATION. RECOMMENDATION: Ultrasound Recommended Additional Recommendation none A letter with findings and recommendations will be mailed to the patient. Reading Location: [facility]
== END | disposition home or self-care (01) ==
LOC: OPUS 08:54
PROVIDERS: PCP Family Medicine; Referring Provider Advanced Practice Midwife; Visit Provider Advanced Practice Midwife
DX: N63.10 Unspecified lump in the right breast, unspecified quadrant (principal)
CPT/HCPCS: 76642; 77062; 77065; G0279